=== PATIENT | male | born 1960 | race Caucasian/White ===

== ENCOUNTER → 2016-02-16 | Outpatient (CLI) | payer MEDICARE, MEDICAID ==
[~2016-02-16] MED LIST: /PANT40TA PO; ASPI325T PO; ASPI325T10 PO; ATOR1TAB21 PO; ATOR40TA PO; CARV6.25 PO; CHLO125TA PO; CLOP75TA2 PO; CORE6.25 PO; GLIP5TAB2 PO; GLIPIZIDE XL PO; HYDR50TA PO; INSUHUMDS SC; INSULANT SC; LISI-538 PO; OXYC1TAB23 PO; PANT40TA2 PO; PERC5TAB PO; PLAV75TA PO; ROPI0.5T PO; ZEST20TA8 PO
[2016-02-16 12:31] LABS: CALCIUM LEVEL 9.2 MG/DL (8.5-10.1); CREATININE FOR GFR 1.38 MG/DL (0.70-1.30); GLOMERULAR FILTRATION RATE 56.7 (>56); POTASSIUM SERUM 4.6 MEQ/L (3.5-5.1)
== END ==
LOC: M LAB 11:13
PROVIDERS: ATTEND Nurse Practitioner Family
DX: I10 Essential (primary) hypertension (principal)

== ENCOUNTER → 2016-04-18 | Outpatient (CLI) | payer MEDICARE, MEDICAID ==
[~2016-04-18] MED LIST changes: -PLAV75TA PO; +PLAV75TA38 PO
[2016-04-18 10:26] LABS: CALCIUM LEVEL 9.1 MG/DL (8.5-10.1); CREATININE FOR GFR 1.37 MG/DL (0.70-1.30); GLOMERULAR FILTRATION RATE 57.2 (>56); POTASSIUM SERUM 4.5 MEQ/L (3.5-5.1)
== END ==
LOC: M LAB 09:31
PROVIDERS: ATTEND Physician Assistant Medical
DX: E11.21 Type 2 diabetes mellitus with diabetic nephropathy (principal); E78.2 Mixed hyperlipidemia

== ENCOUNTER → 2016-06-03 | Outpatient (CLI) | payer MEDICARE, MEDICAID ==
[2016-06-03 09:04] LABS: ANION GAP 5 MEQ/L (8-16); BLOOD UREA NITROGEN 16 MG/DL (7-18); CALCIUM LEVEL 8.4 MG/DL (8.5-10.1); CARBON DIOXIDE LEVEL 31 MEQ/L (21-32); CHLORIDE LEVEL 106 MEQ/L (98-107); CREATININE FOR GFR 1.21 MG/DL (0.70-1.30); GLOMERULAR FILTRATION RATE > 60.0 (>56); GLUCOSE, FASTING 130 MG/DL (70-105); POTASSIUM SERUM 4.1 MEQ/L (3.5-5.1); SODIUM LEVEL 142 MEQ/L (136-145)
== END ==
LOC: M LAB 07:56
PROVIDERS: ATTEND Physician Assistant Medical
DX: E11.21 Type 2 diabetes mellitus with diabetic nephropathy (principal)

== ENCOUNTER 2016-09-02 12:22 | Emergency (ER) | payer MEDICARE, MEDICAID ==
[~2016-09-02] VITALS: Ht 180.3 cm; Wt 100.0 kg
[~2016-09-02 12:22] MED LIST changes: -ATOR40TA PO; +ATOR40TA75 PO; +PLAV1TAB2 PO; -PLAV75TA38 PO
[2016-09-02] MEDS ORDERED: XANA1TAB2 PO (12:42)
[2016-09-02 13:38] LABS: BASO % 0.8 % (0.0-1.0); EOS # 0.2 K/mm3 (0.0-0.50); EOS % 2.7 % (0.0-3.0); LARGE UNSTAINED CELL # 0.1 K/mm3 (0.0-0.4); LARGE UNSTAINED CELL % 1.4 % (0.0-4.0); LYMPH # 1.5 K/mm3 (1.5-4.5); LYMPH % 24.3 % (24.0-44.0); MEAN CORPUSCULAR HEMOGLOBIN 31.5 pg (27.0-33.0); MEAN CORPUSCULAR HGB CONC 33.7 g/dl (32.0-36.5); MEAN CORPUSCULAR VOLUME 93.5 fl (80.0-96.0); MONO # 0.4 K/mm3 (0.0-0.8); MONO % 5.8 % (0.0-5.0); NEUTROPHILS # 3.9 K/mm3 (1.8-7.7); PLATELET COUNT, AUTOMATED 119 k/mm3 (150-450); RED CELL DISTRIBUTION WIDTH 13.3 % (11.5-14.5)
[2016-09-02 14:06] LABS: ALBUMIN 3.9 GM/DL (3.2-5.2); ALBUMIN/GLOBULIN RATIO 1.11 (1.00-1.93); ALKALINE PHOSPHATASE 90 U/L (45-117); ALT/SGPT 35 U/L (12-78); ANION GAP 7 MEQ/L (8-16); AST/SGOT 18 U/L (15-37); BILIRUBIN,DIRECT 0.2 MG/DL (0.0-0.2); BILIRUBIN,TOTAL 0.7 MG/DL (0.2-1.0); BLOOD UREA NITROGEN 17 MG/DL (7-18); CALCIUM LEVEL 9.4 MG/DL (8.5-10.1); CARBON DIOXIDE LEVEL 27 MEQ/L (21-32); CHLORIDE LEVEL 103 MEQ/L (98-107); CREATININE FOR GFR 1.15 MG/DL (0.70-1.30); GLOMERULAR FILTRATION RATE > 60.0 (>56); GLUCOSE, FASTING 195 MG/DL (70-105); POTASSIUM SERUM 4.1 MEQ/L (3.5-5.1); SODIUM LEVEL 137 MEQ/L (136-145); TOTAL PROTEIN 7.4 GM/DL (6.4-8.2)
[2016-09-02] MEDS: NS 1,000 ML IV ONE (14:45)
[2016-09-02] MEDS ORDERED: MECL-68 PO (16:43)
[2016-09-02] MEDS: MECLIZINE 25 MG TABLET PO ONE (16:48)
[2016-09-02 16:58] VITALS: BP 166/94
--- NOTE | 2016-09-03 09:00 | ECGEPIP ---
Stationary ECG Study 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
== END 2016-09-02 16:58 | disposition home or self-care (01) ==
LOC: M ED 12:22
DX: R42 Dizziness and giddiness (principal); M54.5 Low back pain; I10 Essential (primary) hypertension; E11.42 Type 2 diabetes mellitus with diabetic polyneuropathy; Z87.891 Personal history of nicotine dependence; Z88.8 Allergy status to other drugs, medicaments and biological substances; Z79.4 Long term (current) use of insulin; Z79.899 Other long term (current) drug therapy

== ENCOUNTER → 2016-10-03 | Outpatient (CLI) | payer MEDICARE, MEDICAID ==
[~2016-10-03] MED LIST changes: +MECL-68 PO; +XANA1TAB2 PO
--- NOTE | 2016-10-03 09:16 | REP ---
ULTRASOUND ABDOMINAL AORTA: Real-time sonographic evaluation of the abdominal aorta performed. Comparison 08/18/2015. There is ectasia of the distal abdominal aorta with a fusiform configuration. Maximum AP diameter is 3 cm. This is borderline aneurysmal. More proximally maximum AP diameter of the abdominal aorta is 1.9 cm and distally just above the bifurcation 1.7 cm. There are mild to moderate scattered partially calcified plaques in the abdominal aorta. Common iliac arteries are normal in caliber, right measuring 1.0 cm AP dimension and left 0.9 cm. IMPRESSION: Ectasia distal abdominal aorta maximum AP diameter 3.0 cm. Signed by Thierry Mars MD 10/03/2016 03:11 P
== END ==
LOC: M RAD 07:33
PROVIDERS: ATTEND Surgery
DX: I71.4 Abdominal aortic aneurysm, without rupture (principal)

== ENCOUNTER → 2016-10-07 | Outpatient (CLI) | payer MEDICARE, MEDICAID ==
[2016-10-07 10:21] LABS: CALCIUM LEVEL 9.5 MG/DL (8.5-10.1); CREATININE FOR GFR 1.33 MG/DL (0.70-1.30); POTASSIUM SERUM 4.5 MEQ/L (3.5-5.1)
== END ==
LOC: M LAB 09:16
PROVIDERS: ATTEND Physician Assistant Medical
DX: I10 Essential (primary) hypertension (principal)

== ENCOUNTER 2017-02-04 11:21 | Emergency (ER) | payer MEDICARE, MEDICAID | END 2017-02-04 14:03 | disposition home or self-care (01) | LOC: M ED 11:21 | DX: M70.42 Prepatellar bursitis, left knee (principal); Z95.5 Presence of coronary angioplasty implant and graft; Z86.73 Personal history of transient ischemic attack (TIA), and cerebral infarction without residual deficits; E11.40 Type 2 diabetes mellitus with diabetic neuropathy, unspecified; I25.2 Old myocardial infarction; E78.00 Pure hypercholesterolemia, unspecified; I10 Essential (primary) hypertension; Z86.718 Personal history of other venous thrombosis and embolism; Z87.01 Personal history of pneumonia (recurrent); H52.209 Unspecified astigmatism, unspecified eye; K80.50 Calculus of bile duct without cholangitis or cholecystitis without obstruction; Z87.440 Personal history of urinary (tract) infections; N17.9 Acute kidney failure, unspecified; K76.0 Fatty (change of) liver, not elsewhere classified; M54.9 Dorsalgia, unspecified; F41.9 Anxiety disorder, unspecified; F32.9 Major depressive disorder, single episode, unspecified; Z79.4 Long term (current) use of insulin; Z79.899 Other long term (current) drug therapy; Z88.8 Allergy status to other drugs, medicaments and biological substances | CPT/HCPCS: 99283 ==

== ENCOUNTER → 2017-03-17 | Outpatient (CLI) | payer MEDICARE, MEDICAID ==
[2017-03-17 09:40] LABS: BASO # 0.1 10^3/uL (0.0-0.2); BASO % 0.9 % (0.0-1.0); EOS # 0.2 10^3/uL (0.0-0.50); EOS % 2.8 % (0.0-3.0); HEMATOCRIT 51.2 % (42.0-52.0); IMMATURE GRANULOCYTE # 0.1 10^3/uL (0-0); IMMATURE GRANULOCYTE % 1.4 % (0-0); LYMPH # 1.5 10^3/uL (1.5-4.5); LYMPH % 18.6 % (24.0-44.0); MEAN CORPUSCULAR HEMOGLOBIN 30.5 pg (27.0-33.0); MEAN CORPUSCULAR HGB CONC 33.2 g/dl (32.0-36.5); MEAN CORPUSCULAR VOLUME 91.9 fl (80.0-96.0); MONO # 0.6 10^3/uL (0.0-0.8); MONO % 6.8 % (0.0-5.0); NEUTROPHILS # 5.7 10^3/uL (1.8-7.7); NEUTROPHILS % 69.5 % (36.0-66.0); PLATELET COUNT, AUTOMATED 150 10^3/uL (150-450); RED BLOOD COUNT 5.57 10^6/uL (4.30-6.10); RED CELL DISTRIBUTION WIDTH 13.2 % (11.5-14.5); WHITE BLOOD COUNT 8.1 10^3/uL (4.0-10.0)
[2017-03-17 10:07] LABS: ANION GAP 6 MEQ/L (8-16); BLOOD UREA NITROGEN 13 MG/DL (7-18); CALCIUM LEVEL 9.3 MG/DL (8.5-10.1); CARBON DIOXIDE LEVEL 29 MEQ/L (21-32); CHLORIDE LEVEL 106 MEQ/L (98-107); CHOLESTEROL LEVEL 141 MG/DL (<200); CHOLESTEROL RISK RATIO 3.615 (<5); CREATININE FOR GFR 1.35 MG/DL (0.70-1.30); GLUCOSE, FASTING 156 MG/DL (70-100); HDL CHOLESTEROL 39 MG/DL (>40); LDL CHOLESTEROL 76.6 MG/DL (<100); NON-HDL-C 102 MG/DL; POTASSIUM SERUM 4.4 MEQ/L (3.5-5.1); SODIUM LEVEL 141 MEQ/L (136-145); TRIGLYCERIDES LEVEL 127 MG/DL (<150)
[2017-03-17 10:14] LABS: MALB URINE SIEMENS 44.3 MG/L; MAU/CREAT RATIO 16.9 MCG/MG (0.0-30.0)
== END ==
LOC: M LAB 08:21
DX: E11.40 Type 2 diabetes mellitus with diabetic neuropathy, unspecified (principal)
CPT/HCPCS: 80061

== ENCOUNTER → 2017-03-17 | Outpatient (CLI) | payer MEDICARE, MEDICAID ==
[2017-03-17 10:01] LABS: ANION GAP 6 MEQ/L (8-16); BLOOD UREA NITROGEN 13 MG/DL (7-18); CALCIUM LEVEL 9.1 MG/DL (8.5-10.1); CARBON DIOXIDE LEVEL 29 MEQ/L (21-32); CHLORIDE LEVEL 105 MEQ/L (98-107); CHOLESTEROL LEVEL 140 MG/DL (<200); CHOLESTEROL RISK RATIO 3.684 (<5); CREATININE FOR GFR 1.32 MG/DL (0.70-1.30); GLOMERULAR FILTRATION RATE 59.5 (>56); GLUCOSE, FASTING 157 MG/DL (70-100); HDL CHOLESTEROL 38 MG/DL (>40); NON-HDL-C 102 MG/DL; POTASSIUM SERUM 4.3 MEQ/L (3.5-5.1); SODIUM LEVEL 140 MEQ/L (136-145); TRIGLYCERIDES LEVEL 125 MG/DL (<150)
[2017-03-17 10:14] LABS: MAU/CREAT RATIO 17.2 MCG/MG (0.0-30.0)
== END ==
LOC: M LAB 08:26
DX: E11.21 Type 2 diabetes mellitus with diabetic nephropathy (principal)

== ENCOUNTER → 2017-10-15 | Outpatient (CLI) | payer MEDICARE, MEDICAID | LOC: M RAD 08:32 | DX: I71.4 Abdominal aortic aneurysm, without rupture (principal) | CPT/HCPCS: 76775 ==

== ENCOUNTER 2018-04-18 14:26 | Inpatient (IN) | payer MEDICARE, MEDICAID ==
[~2018-04-18] VITALS: Ht 180.3 cm; Wt 91.2 kg
[~2018-04-18 14:26] MED LIST changes: +BUPR1TAB53 PO; -INSUHUMDS SC; +INSUHUMDS SUBQ; +LANTINJ4 SUBQ; +LOSA50TA88 PO; -PANT40TA2 PO; +PANT40TA3 PO
[2018-04-18] MEDS ORDERED: LR 1,000 ML IV ONE (15:00)
[2018-04-18 15:07] LABS: BASO % 0.2 % (0.0-1.0); EOS % 0.1 % (0.0-3.0); HEMATOCRIT 48.8 % (42.0-52.0); HEMOGLOBIN 16.6 g/dl (13.5-17.5); LYMPH # 1.2 10^3/uL (1.5-4.5); LYMPH % 9.3 % (24.0-44.0); MEAN CORPUSCULAR HEMOGLOBIN 30.9 pg (27.0-33.0); MEAN CORPUSCULAR VOLUME 90.9 fl (80.0-96.0); MONO # 0.9 10^3/uL (0.0-0.8); MONO % 6.7 % (0.0-5.0); NEUTROPHILS # 10.6 10^3/uL (1.8-7.7); NEUTROPHILS % 83.2 % (36.0-66.0); PLATELET COUNT, AUTOMATED 145 10^3/uL (150-450); RED BLOOD COUNT 5.37 10^6/uL (4.30-6.10); WHITE BLOOD COUNT 12.7 10^3/uL (4.0-10.0)
[2018-04-18] MEDS ORDERED: ONDANSETRON 4MG/2ML VIAL (J2405) IV ONE (15:30)
[2018-04-18] MEDS ORDERED: MORPHINE 4 MG/ML 1ML VIAL/SYRINGE (J2270) IV ONE (15:30)
[2018-04-18 15:35] LABS: ALBUMIN 3.7 GM/DL (3.2-5.2); ALT/SGPT 48 U/L (12-78); BILIRUBIN,DIRECT 0.2 MG/DL (0.0-0.2); BILIRUBIN,TOTAL 0.7 MG/DL (0.2-1.0); BLOOD UREA NITROGEN 11 MG/DL (7-18); CALCIUM LEVEL 8.7 MG/DL (8.5-10.1); CARBON DIOXIDE LEVEL 26 MEQ/L (21-32); CHLORIDE LEVEL 111 MEQ/L (98-107); CPK CREATINE PHOSPHOKINASE 133 U/L (39-308); CREATININE FOR GFR 1.08 MG/DL (0.70-1.30); GLOMERULAR FILTRATION RATE > 60.0 (>56); GLUCOSE, FASTING 174 MG/DL (70-100); LIPASE 78 U/L (73-393); POTASSIUM SERUM 4.4 MEQ/L (3.5-5.1); SODIUM LEVEL 144 MEQ/L (136-145); TOTAL PROTEIN 7.1 GM/DL (6.4-8.2); TROPONIN I < 0.02 NG/ML (< 0.10)
[2018-04-18] MEDS ORDERED: GASTROGRAFIN SOLUTION 30ML (Q9963) As Ordered ONE (15:59)
[2018-04-18] MEDS: GASTROGRAFIN SOLUTION 30ML (Q9963) PO SCH ×2 (16:00→16:30)
[2018-04-18] MEDS ORDERED: ISOVUE-370 76% 100ML VIAL (Q9967) As Ordered ONE (17:01)
--- NOTE | 2018-04-18 17:33 | REP ---
CT of the abdomen pelvis with IV and oral contrast: Comparison is 02/24/2015. The visualized lung anders are unremarkable. There is hepato steatosis. The liver is otherwise unremarkable. There is a small gallbladder calculus. I suspect there is pericholecystic fluid. This may indicate acute cholecystitis and should be correlated with clinical findings. The pancreas is diffusely atrophic. The pancreatic duct is dilated measuring up to 7 mm in diameter. This is similar to the prior study. There is no pancreatic inflammation or pseudocyst. Spleen is normal size, homogeneous and unremarkable. The adrenals are unremarkable. The kidneys are unremarkable. The abdominal aorta. There is ectasia of the distal abdominal aorta measuring up to 2.9 cm in diameter. There is mural thrombus in the distal abdominal aorta. These findings are not significantly changed. There is no bowel distension or obstruction. There is sigmoid colon diverticulosis. There is no CT evidence of diverticulitis. Pelvis: There are surgical clips in the right lower quadrant. The the patient reportedly has an appendectomy. The bladder is unremarkable. There is no ascites or adenopathy. The pelvic bowel loops are unremarkable. Impression: Appendectomy. Gallbladder calculus. Pericholecystic fluid. This may indicate acute cholecystitis and requires clinical correlation. Chronically atrophic pancreas and chronically dilated pancreatic duct. No evidence of pancreatic inflammation or pseudocyst. Mild ectasia of the distal abdominal aorta with mural thrombus. Diverticulosis without diverticulitis. Electronically Signed by Thierry Shepard MD 04/18/2018 05:25 P
[2018-04-18] MEDS ORDERED: PROMETHAZINE INJ 25 MG/ML VIAL (J2550) IV PRN (17:45)
[2018-04-18] MEDS ORDERED: METOCLOPRAMIDE INJ 10MG/2ML VIAL (J2765) IV PRN (17:45)
[2018-04-18] MEDS ORDERED: ONDANSETRON 4MG/2ML VIAL (J2405) IV PRN (17:45)
[2018-04-18] MEDS ORDERED: MORPHINE 4 MG/ML 1ML VIAL/SYRINGE (J2270) IV PRN ×2 (17:45)
[2018-04-18] MEDS ORDERED: GLUCOSE 4 GM CHEW TABLET PO PRN (17:45)
[2018-04-18] MEDS ORDERED: GLUCAGON FOR INJ 1 MG VIAL (J1610) SC PRN (17:45)
[2018-04-18] MEDS ORDERED: KETOROLAC 30 MG/ML VIAL (J1885) IV PRN (17:45)
[2018-04-18] MEDS ORDERED: NORCO, ANEXSIA 5/325MG TABLET (HYDROcodone/ACETAMINOPHEN) PO PRN ×2 (17:45)
[2018-04-18] MEDS ORDERED: DEXTROSE 50% 50 ML SYRINGE IV PRN (17:45)
[2018-04-18] MEDS: HumaLOG INSULIN (NovoLOG) PER UNIT SC SCH (18:00)
[2018-04-18] MEDS ORDERED: GLIP5TAB8 PO (18:21)
[2018-04-18] MEDS: PIPERACILLIN/TAZOBACTAM SOD 3.375 GM in D5W MINI-BAG PLUS 50 ML IV SCH (18:30)
[2018-04-18] MEDS ORDERED: HumaLOG INSULIN (NovoLOG) PER UNIT SC ONE (21:00)
[2018-04-18] MEDS ORDERED: glipiZIDE (GLUCOTROL) 5 MG TAB PO SCH (21:00)
[2018-04-18] MEDS: LR 1,000 ML IV SCH (21:37)
[2018-04-18] MEDS: CARVedilol 6.25 MG TAB PO SCH (21:38)
[2018-04-18] MEDS: ATORVASTATIN 20 MG TAB PO SCH (21:38)
[2018-04-18] MEDS: rOPINIRole 0.25 MG TAB(REQUIP) PO SCH (22:55)
[2018-04-18] MEDS: buPROPion **SR TABLET** (ZYBAN) 150MG PO SCH (22:55)
[2018-04-19] MEDS: HumaLOG INSULIN (NovoLOG) PER UNIT SC SCH ×4 (00:24→18:18)
[2018-04-19] MEDS: PIPERACILLIN/TAZOBACTAM SOD 3.375 GM in D5W MINI-BAG PLUS 50 ML IV SCH ×5 (00:29→23:06)
[2018-04-19 01:30] VITALS: BP 162/77
[2018-04-19] MEDS: PANTOPRAZOLE 40MG INJ (PROTONIX) (C9113) IV SCH ×2 (01:35→08:38)
[2018-04-19] MEDS: LR 1,000 ML IV SCH ×2 (02:00→11:11)
[2018-04-19 05:00] VITALS: BP 152/74
[2018-04-19 06:48] LABS: HEMATOCRIT 48.4 % (42.0-52.0); HEMOGLOBIN 15.9 g/dl (13.5-17.5); MEAN CORPUSCULAR HEMOGLOBIN 29.9 pg (27.0-33.0); MEAN CORPUSCULAR HGB CONC 32.9 g/dl (32.0-36.5); PLATELET COUNT, AUTOMATED 156 10^3/uL (150-450); RED BLOOD COUNT 5.32 10^6/uL (4.30-6.10); WHITE BLOOD COUNT 9.7 10^3/uL (4.0-10.0)
[2018-04-19 07:10] LABS: ALBUMIN 3.2 GM/DL (3.2-5.2); ALT/SGPT 120 U/L (12-78); BILIRUBIN,TOTAL 1.3 MG/DL (0.2-1.0); BLOOD UREA NITROGEN 10 MG/DL (7-18); CALCIUM LEVEL 8.1 MG/DL (8.5-10.1); CARBON DIOXIDE LEVEL 25 MEQ/L (21-32); CHLORIDE LEVEL 108 MEQ/L (98-107); CREATININE FOR GFR 0.98 MG/DL (0.70-1.30); GLOMERULAR FILTRATION RATE > 60.0 (>56); GLUCOSE, FASTING 156 MG/DL (70-100); SODIUM LEVEL 140 MEQ/L (136-145); TOTAL PROTEIN 6.8 GM/DL (6.4-8.2)
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
[2018-04-19] MEDS: buPROPion **SR TABLET** (ZYBAN) 150MG PO SCH ×2 (08:38→20:49)
[2018-04-19] MEDS: CARVedilol 6.25 MG TAB PO SCH ×2 (08:38→20:50)
[2018-04-19 10:00] VITALS: BP 108/55
--- NOTE | 2018-04-19 12:08 | IPN ---
DATE: 04/19/2018 The patient overall states that his pain is better than it was last night. His white count has come down this morning. Unfortunately his liver function test have bumped up with his bilirubin bumping up, and it is suggestive, with a history of pancreatitis, that he probably has a common bile duct stone. He states that his pain is better, so I wonder if he passed a stone, but at this point, it makes the most sense to proceed with an magnetic resonance cholangiopancreatography (MRCP). On his physical exam, his abdomen is less tender than it was yesterday, without significant guarding, rebound or peritoneal signs, although he has had some pain medication this morning but he states in general things are better today than there were yesterday. IMPRESSION AND PLAN: 1. The patient has an episode of cholecystitis, although it is hard to know if this was just edema in the gallbladder secondary to common bile duct obstruction and not specifically cholecystitis. But, in any case, prophylactic treatment for cholecystitis is most reasonable. In addition, his liver function tests (LFTs) had bumped up, and this suggests a possible common bile duct stone. Will see if it has passed. If it appears to have passed on the MRCP, then will continue with his clear liquid diet. Unfortunately, he states that he is not able to stay at the hospital because of other issues ongoing. I have instructed him that things can get worse, and he may need to stay for a few days. But, at this point, he is suggesting that he may need to sign out against medical advice (AMA). Thus, from a compromised standpoint, if he tolerates a clear liquid diet and seems to be doing fine with this, it is reasonable to have him discharged to home and close interval followup at the office with plans for a laparoscopic cholecystectomy. At this point, however, his other issue is his anticoagulation that he is currently on. He will eventually be suitable for procedure, but with his anticoagulation, I anticipate if he even has a common bile duct stone seen on the study, that endoscopic retrograde cholangiopancreatography (ERCP) may not be offered for him given that he is relatively asymptomatic and want to wait another 24 hours prior to assessing whether this is reasonable. From the standpoint of surgical intervention, his risk of perioperative bleeding is much higher given his recent use of Plavix. Thus, we will see how he does with the MRCP and reassess thereafter.
[2018-04-19 14:12] VITALS: BP 116/61
--- NOTE | 2018-04-19 15:54 | IPNPDOC ---
Subjective Date Seen The patient was seen on 04/19/18. Subjective Chief Complaint/HPI Patient seen and examined at the bedside. Reports overall improvement of clinical condition and abdominal pain. MRCP ordered this morning for elevated LFTs. Objective Physical Examination General Exam: Positive: Alert, Cooperative, No Acute Distress ENT Exam: Positive: Atraumatic, Mucous membr. moist/pink Neck Exam: Negative: JVD Chest Exam: Positive: Clear to auscultation, Normal air movement Heart Exam: Positive: Rate Normal, Normal S1, Normal S2 Abdomen Exam: Positive: Soft, Tenderness (Mild tenderness to deep palpation in the RUQ. No rebound tenderness, guarding, or rigidity noted.) Extremity Exam: Negative: Tenderness, Swelling Psych Exam: Positive: Oriented x 3 Assessment /Plan Plan/VTE VTE Prophylaxis Ordered?: Yes Plan Possible Acute Cholecystitis CT Abd/Pel from admission noted Cont Zosyn Pain meds as ordered NPO, IVF Hydration Surgery on board for possible intervention Elevated LFTs possibly 2/2 Underlying CBD Stone MRCP ordered Patient did have a low grade fever last night, but WBC has normalized, and he otherwise notes an overall improvement of pain, clinical condition Will follow up with studies Hx of CAD s/p Stenting 5 years ago Plavix on hold for possible surgical intervention Patient denies any acute c/o chest pain, palpitations, SOB Cont Statin, Coreg DM Cont ISS as ordered HTN, stable Cont Coreg, Losartan on hold GERD Cont Protonix Depression/Anxiety Cont Bupropion Dyslipidemia Cont Statin Restless Leg Syndrome Cont Ropinrole DVT Prophylaxis SCDs/TEDs VS, I&O, 24H, Fishbone Vital Signs/I&O Vital Signs Date Time Temp Pulse Resp B/P (MAP) Pulse Ox O2 Delivery O2 Flow Rate FiO2 04/19/18 14:12 98.1 61 18 116/61 (79) 97 04/19/18 10:00 91.0 91 04/19/18 01:16 Room Air I&O- Last 24 Hours up to 6 AM 04/19/18 05:59 Intake Total 1050 ml Balance 1050 ml Laboratory Data 24H LABS Laboratory Tests 2 04/18/18 19:27: Bedside Glucose (Misc Panel) 139H 04/19/18 00:16: Bedside Glucose (Misc Panel) 138H 04/19/18 05:39: Bedside Glucose (Misc Panel) 156H 04/19/18 06:15: Nucleated Red Blood Cells % (auto) 0.0, Anion Gap 7L, Glomerular Filtration Rate > 60.0, Blood Urea Nitrogen 10, Creatinine 0.98, Sodium Level 140, Potassium Level 4.0, Chloride Level 108H, Carbon Dioxide Level 25, Calcium Level 8.1L, Aspartate Amino Transf (AST/SGOT) 114H, Alanine Aminotransferase (ALT/SGPT) 120H, Alkaline Phosphatase 138H, Total Bilirubin 1.3#H, Total Protein 6.8, Albumin 3.2, Albumin/Globulin Ratio 0.89L 04/19/18 12:43: Bedside Glucose (Misc Panel) 159H CBC/BMP Laboratory Tests 04/19/18 06:15 Red Blood Count 5.32, Mean Corpuscular Volume 91.0, Mean Corpuscular Hemoglobin 29.9, Mean Corpuscular Hemoglobin Concent 32.9, Red Cell Distribution Width 14.2, Calcium Level 8.1 L, Aspartate Amino Transf (AST/SGOT) 114 H, Alanine Aminotransferase (ALT/SGPT) 120 H, Alkaline Phosphatase 138 H, Total Bilirubin 1.3 #H, Total Protein 6.8, Albumin 3.2 TORIN BEACH MD Apr 19, 2018 15:54
[2018-04-19 16:00] VITALS: BP 134/68
[2018-04-19 20:00] VITALS: BP 127/69
[2018-04-19] MEDS: rOPINIRole 0.25 MG TAB(REQUIP) PO SCH (20:50)
--- NOTE | 2018-04-19 20:54 | ECGEPIP ---
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
[2018-04-19] MEDS: ATORVASTATIN 20 MG TAB PO SCH (21:07)
[2018-04-20] VITALS: BP 110/58
[2018-04-20] MEDS: LR 1,000 ML IV SCH (00:24)
[2018-04-20] MEDS: HumaLOG INSULIN (NovoLOG) PER UNIT SC SCH ×3 (00:24→12:00)
[2018-04-20 04:00] VITALS: BP 115/64
[2018-04-20] MEDS: PIPERACILLIN/TAZOBACTAM SOD 3.375 GM in D5W MINI-BAG PLUS 50 ML IV SCH ×2 (06:12→12:30)
[2018-04-20 08:00] VITALS: BP 145/81
[2018-04-20 08:38] LABS: HEMATOCRIT 40.4 % (42.0-52.0); MEAN CORPUSCULAR HEMOGLOBIN 30.4 pg (27.0-33.0); MEAN CORPUSCULAR HGB CONC 33.7 g/dl (32.0-36.5); MEAN CORPUSCULAR VOLUME 90.2 fl (80.0-96.0); PLATELET COUNT, AUTOMATED 113 10^3/uL (150-450); RED BLOOD COUNT 4.48 10^6/uL (4.30-6.10); WHITE BLOOD COUNT 5.2 10^3/uL (4.0-10.0)
[2018-04-20 08:40] LABS: HEMOGLOBIN 13.6 g/dl (13.5-17.5)
[2018-04-20 09:01] LABS: ALBUMIN 2.7 GM/DL (3.2-5.2); ALT/SGPT 111 U/L (12-78); BILIRUBIN,TOTAL 0.9 MG/DL (0.2-1.0); BLOOD UREA NITROGEN 8 MG/DL (7-18); CALCIUM LEVEL 8.1 MG/DL (8.5-10.1); CARBON DIOXIDE LEVEL 27 MEQ/L (21-32); CHLORIDE LEVEL 111 MEQ/L (98-107); CREATININE FOR GFR 1.05 MG/DL (0.70-1.30); GLOMERULAR FILTRATION RATE > 60.0 (>56); GLUCOSE, FASTING 97 MG/DL (70-100); POTASSIUM SERUM 3.9 MEQ/L (3.5-5.1); SODIUM LEVEL 143 MEQ/L (136-145); TOTAL PROTEIN 5.8 GM/DL (6.4-8.2)
--- NOTE | 2018-04-20 09:04 | REP ---
MRI ABDOMEN WITHOUT CONTRAST (MRCP): 04/19/2018 CLINICAL HISTORY: Cholelithiasis, sludge, possible acute cholecystitis. TECHNIQUE: Coronal T2 and standard MRCP acquisitions with gradient echo and fat suppressed heavily T2-weighted techniques and reconstructions. COMPARISON: CT 04/18/2017, 10/09/2014, ultrasound 10/14/2014 FINDINGS: Liver shows no focal hepatic mass nor is there any intrahepatic biliary dilatation. There is no splenomegaly or focal lesion and no generalized ascites. There is some pericholecystic edema and fluid. Layered debris in the gallbladder is noted near the fundus and dependent gallbladder. The common duct is up to 4.2 mm and without definite filling defect within the david hepatis. In the pancreatic head region, a subtle defect is seen less than 2 mm which could be a stone or artifact. In addition, the pancreatic duct is dilated and is up to [address] it was 6-[address] in 2014 in the same region of the pancreatic body and head. Pancreatic atrophy is again seen. There is no peripancreatic fluid collection. Adrenal glands are grossly intact. I see no definite adenopathy. Kidneys show no hydronephrosis. IMPRESSION: 1. Biliary sludge and some stones layering and with some pericholecystic fluid/edema evident. Cannot exclude acute cholecystitis. 2. There is no common duct dilatation, but a 1.6 mm filling defect in the common duct within the pancreatic head distally noted that could be stone or other intraductal filling defect versus artifact. This is not obstructing. 3. Dilated pancreatic duct with chronic atrophy and that duct up to 7 mm as on the CT 3 years ago. The distal filling defect that may be present. Calcification in the pancreatic head in this region noted but it is unchanged from the 2015 study. ERCP may helpful. Electronically Signed by Errol Zimmerman MD 04/20/2018 07:38 P
[2018-04-20] MEDS: PANTOPRAZOLE 40MG INJ (PROTONIX) (C9113) IV SCH (09:25)
[2018-04-20] MEDS: buPROPion **SR TABLET** (ZYBAN) 150MG PO SCH (09:25)
[2018-04-20 09:27] VITALS: BP 145/81
[2018-04-20] MEDS: CARVedilol 6.25 MG TAB PO SCH (09:27)
[2018-04-20] MEDS ORDERED: AUGM500T34 PO (10:24)
--- NOTE | 2018-04-20 16:18 | IPNPDOC ---
Subjective Date Seen The patient was seen on 04/20/18. Subjective Chief Complaint/HPI Patient seen and examined at bedside this morning. States that his abdominal pain has resolved, and notes that he has been tolerating a liquid diet without any acute complaints of nausea, vomiting, abdominal pain, or diarrhea. He is awaiting to be seen by the surgeon to see the next step in the plan of his care. Otherwise, no acute overnight events noted. Objective Physical Examination General Exam: Positive: Alert, Cooperative, No Acute Distress ENT Exam: Positive: Atraumatic, Mucous membr. moist/pink Neck Exam: Negative: JVD Chest Exam: Positive: Clear to auscultation, Normal air movement Heart Exam: Positive: Rate Normal, Normal S1, Normal S2 Abdomen Exam: Positive: Soft; Negative: Tenderness Extremity Exam: Negative: Tenderness, Swelling Psych Exam: Positive: Oriented x 3 Assessment /Plan Plan/VTE VTE Prophylaxis Ordered?: Yes Plan Possible Acute Cholecystitis CT Abd/Pel from admission noted Cont Zosyn as ordered Pain meds as ordered Patient's diet has been advanced to clear liquids by Surgery Surgery on board for possible intervention Elevated LFTs possibly 2/2 Underlying CBD Stone MRCP ordered--notable for no common duct dilatation, but a 1.6 mm filling defect in the common duct within the pancreatic head distally noted to be Stone versus intraductal filling defect versus artifact The patient's LFTs are trending downwards this morning Will follow up with Surgical recommendations Hx of CAD s/p Stenting 5 years ago Plavix on hold for possible surgical intervention Patient denies any acute c/o chest pain, palpitations, SOB Cont Statin, Coreg DM Cont ISS as ordered HTN, stable Cont Coreg, Losartan on hold GERD Cont Protonix Depression/Anxiety Cont Bupropion Dyslipidemia Cont Statin Restless Leg Syndrome Cont Ropinrole DVT Prophylaxis SCDs/TEDs VS, I&O, 24H, Fishbone Vital Signs/I&O Vital Signs Date Time Temp Pulse Resp B/P (MAP) Pulse Ox O2 Delivery O2 Flow Rate FiO2 04/20/18 09:27 63 145/81 04/20/18 08:00 97.8 19 96 04/19/18 10:00 04/19/18 01:16 Room Air I&O- Last 24 Hours up to 6 AM 04/20/18 06:00 Intake Total 1560 ml Output Total 500 ml Balance 1060 ml Laboratory Data 24H LABS Laboratory Tests 2 04/19/18 17:35: Bedside Glucose (Misc Panel) 138H 04/19/18 18:20: Urine Color CAT, Urine Appearance CLEAR, Urine pH 5.0, Urine Specific [place] 1.043, Urine Protein 1+H, Urine Glucose (UA) 2+H, Urine Ketones TRACEH, Urine Blood NEGATIVE, Urine Nitrite NEGATIVE, Urine Bilirubin NEGATIVE, Urine Urobilinogen 4.0H, Urine Leukocyte Esterase NEGATIVE, Urine WBC (Auto) 10H, Urine RBC (Auto) 5H, Urine Hyaline Casts (Auto) 0, Urine Bacteria (Auto) NEGATIVE, Urine Squamous Epithelial Cells 2, Urine Mucus (Auto) SMALL, Urine Sperm (Auto) 04/20/18 00:13: Bedside Glucose (Misc Panel) 110H 04/20/18 06:06: Bedside Glucose (Misc Panel) 110H 04/20/18 08:08: Nucleated Red Blood Cells % (auto) 0.0, Anion Gap 5L, Glomerular Filtration Rate > 60.0, Blood Urea Nitrogen 8, Creatinine 1.05, Sodium Level 143, Potassium Level 3.9, Chloride Level 111H, Carbon Dioxide Level 27, Calcium Level 8.1L, Aspartate Amino Transf (AST/SGOT) 80H, Alanine Aminotransferase (ALT/SGPT) 111H, Alkaline Phosphatase 126H, Total Bilirubin 0.9, Total Protein 5.8L, Albumin 2.7L, Albumin/Globulin Ratio 0.87L 04/20/18 12:14: Bedside Glucose (Misc Panel) 119H CBC/BMP Laboratory Tests 04/20/18 08:08 Red Blood Count 4.48, Mean Corpuscular Volume 90.2, Mean Corpuscular Hemoglobin 30.4, Mean Corpuscular Hemoglobin Concent 33.7, Red Cell Distribution Width 14.3, Calcium Level 8.1 L, Aspartate Amino Transf (AST/SGOT) 80 H, Alanine Aminotransferase (ALT/SGPT) 111 H, Alkaline Phosphatase 126 H, Total Bilirubin 0.9, Total Protein 5.8 L, Albumin 2.7 L TORIN BEACH MD Apr 20, 2018 16:18
== END 2018-04-20 13:30 | disposition home or self-care (01) | DRG 446 ==
LOC: M ED 14:26 → M ED INP 17:37 → M MS4PR 04-19 01:26 → M PED 04-19 16:00
PROVIDERS: ADMIT Surgery; ATTEND Surgery
DX: K80.00 Calculus of gallbladder with acute cholecystitis without obstruction (principal); I25.10 Atherosclerotic heart disease of native coronary artery without angina pectoris; I10 Essential (primary) hypertension; K21.9 Gastro-esophageal reflux disease without esophagitis; F32.9 Major depressive disorder, single episode, unspecified; E11.51 Type 2 diabetes mellitus with diabetic peripheral angiopathy without gangrene; G25.81 Restless legs syndrome; Z79.899 Other long term (current) drug therapy; Z88.8 Allergy status to other drugs, medicaments and biological substances; E78.5 Hyperlipidemia, unspecified; F41.9 Anxiety disorder, unspecified

== ENCOUNTER → 2018-06-29 | Outpatient (CLI) | payer MEDICARE, MEDICAID ==
[~2018-06-29] MED LIST changes: -/PANT40TA PO; +ASPI-1 PO; -ASPI325T PO; +AUGM500T34 PO; +GLIP5TAB8 PO; +HYDR-4267 PO; -HYDR50TA PO; +PROT1TAB2 PO
[2018-06-29 10:07] LABS: BASO # 0.1 10^3/uL (0.0-0.2); BASO % 0.7 % (0.0-1.0); EOS # 0.3 10^3/uL (0.0-0.50); HEMATOCRIT 49.4 % (42.0-52.0); HEMOGLOBIN 16.6 g/dl (13.5-17.5); LYMPH # 1.8 10^3/uL (1.5-4.5); LYMPH % 22.2 % (24.0-44.0); MEAN CORPUSCULAR HEMOGLOBIN 31.6 pg (27.0-33.0); MEAN CORPUSCULAR HGB CONC 33.6 g/dl (32.0-36.5); MEAN CORPUSCULAR VOLUME 93.9 fl (80.0-96.0); MONO # 0.5 10^3/uL (0.0-0.8); MONO % 5.8 % (0.0-5.0); NEUTROPHILS # 5.6 10^3/uL (1.8-7.7); NEUTROPHILS % 67.7 % (36.0-66.0); PLATELET COUNT, AUTOMATED 146 10^3/uL (150-450); RED BLOOD COUNT 5.26 10^6/uL (4.30-6.10); WHITE BLOOD COUNT 8.3 10^3/uL (4.0-10.0)
[2018-06-29 11:07] LABS: BLOOD UREA NITROGEN 14 MG/DL (7-18); CALCIUM LEVEL 9.5 MG/DL (8.5-10.1); CARBON DIOXIDE LEVEL 29 MEQ/L (21-32); CHLORIDE LEVEL 101 MEQ/L (98-107); CREATININE FOR GFR 1.27 MG/DL (0.70-1.30); FREE T4 1.01 NG/DL (0.76-1.46); GLOMERULAR FILTRATION RATE > 60.0 (>56); GLUCOSE, FASTING 434 MG/DL (70-100); POTASSIUM SERUM 4.9 MEQ/L (3.5-5.1); SODIUM LEVEL 136 MEQ/L (136-145)
[2018-06-29 11:36] LABS: HEMOGLOBIN A1c 10.4 %
== END ==
LOC: M LAB 09:25
PROVIDERS: ATTEND Physician Assistant Medical
DX: R63.4 Abnormal weight loss (principal); E11.40 Type 2 diabetes mellitus with diabetic neuropathy, unspecified

== ENCOUNTER → 2018-06-30 | Day surgery (SDC) | payer MEDICARE, MEDICAID ==
[~2018-06-30] VITALS: Ht 177.8 cm; Wt 83.0 kg
[~2018-06-30] MED LIST changes: +KETOROLAC 60 MG/2 ML VIAL (J1885) As Ordered ONE; +LIDOCAINE 2% INJ 100 MG/5 ML SDV (FOR ANES.) As Ordered ONE; +LR 1,000 ML IV ONE; +MIDAZOLAM INJ 2 MG/2 ML VIAL (J2250) As Ordered ONE; +ONDANSETRON 4MG/2ML VIAL (J2405) As Ordered ONE; +PROPOFOL 200 MG/20 ML VIAL As Ordered ONE; +ROCURONIUM BROMIDE 50 MG/5 ML VIAL As Ordered ONE; +ceFAZolin SOD 1 GM in D5W MINI-BAG PLUS 50 ML IV ONE; +dexameTHASONE 4 MG/ML 1ML VIAL (J1100) As Ordered ONE; +fentaNYL 250 MCG/5 ML INJECTION (J3010) As Ordered ONE
[2018-06-30 08:30] VITALS: BP 156/74
== END | disposition home or self-care (01) ==
LOC: M SDC 07:36
PROVIDERS: ATTEND Surgery
DX: K85.10 Biliary acute pancreatitis without necrosis or infection (principal); Z53.09 Procedure and treatment not carried out because of other contraindication; Z98.61 Coronary angioplasty status; Z79.01 Long term (current) use of anticoagulants

== ENCOUNTER → 2018-11-12 | Outpatient (CLI) | payer MEDICARE ==
[~2018-11-12] MED LIST changes: -KETOROLAC 60 MG/2 ML VIAL (J1885) As Ordered ONE; -LIDOCAINE 2% INJ 100 MG/5 ML SDV (FOR ANES.) As Ordered ONE; -LR 1,000 ML IV ONE; -MIDAZOLAM INJ 2 MG/2 ML VIAL (J2250) As Ordered ONE; -ONDANSETRON 4MG/2ML VIAL (J2405) As Ordered ONE; -PROPOFOL 200 MG/20 ML VIAL As Ordered ONE; -ROCURONIUM BROMIDE 50 MG/5 ML VIAL As Ordered ONE; -ceFAZolin SOD 1 GM in D5W MINI-BAG PLUS 50 ML IV ONE; -dexameTHASONE 4 MG/ML 1ML VIAL (J1100) As Ordered ONE; -fentaNYL 250 MCG/5 ML INJECTION (J3010) As Ordered ONE
[2018-11-12 11:11] LABS: HEMOGLOBIN A1c 10.8 %
[2018-11-12 11:27] LABS: CALCIUM LEVEL 9.1 MG/DL (8.5-10.1); CHOLESTEROL RISK RATIO 4.909 (<5); CREATININE FOR GFR 1.41 MG/DL (0.70-1.30); GLOMERULAR FILTRATION RATE 54.8 (>56); POTASSIUM SERUM 5.1 MEQ/L (3.5-5.1)
[2018-11-12 11:32] LABS: MAU/CREAT RATIO 43.9 MCG/MG (0.0-30.0)
== END ==
LOC: M LAB 09:46
PROVIDERS: ATTEND Physician Assistant Medical
DX: E11.40 Type 2 diabetes mellitus with diabetic neuropathy, unspecified (principal); I25.10 Atherosclerotic heart disease of native coronary artery without angina pectoris; E78.5 Hyperlipidemia, unspecified

== ENCOUNTER → 2019-03-03 | Outpatient (CLI) | payer MEDICARE ==
[~2019-03-03] MED LIST changes: -MECL-68 PO; +MECL1TAB31 PO
[2019-03-03 13:10] LABS: HEMOGLOBIN A1c 12.6 %
[2019-03-03 13:12] LABS: BLOOD UREA NITROGEN 12 MG/DL (7-18); CALCIUM LEVEL 8.9 MG/DL (8.5-10.1); CARBON DIOXIDE LEVEL 30 MEQ/L (21-32); CHLORIDE LEVEL 102 MEQ/L (98-107); CREATININE FOR GFR 1.26 MG/DL (0.70-1.30); GLOMERULAR FILTRATION RATE > 60.0 (>56); GLUCOSE, FASTING 411 MG/DL (70-100); POTASSIUM SERUM 4.6 MEQ/L (3.5-5.1); SODIUM LEVEL 137 MEQ/L (136-145)
== END ==
LOC: M LAB 11:28
PROVIDERS: ATTEND Physician Assistant Medical
DX: E11.40 Type 2 diabetes mellitus with diabetic neuropathy, unspecified (principal)

== ENCOUNTER → 2019-09-21 | Outpatient (CLI) | payer MEDICARE, MEDICAID ==
[~2019-09-21] MED LIST changes: +PANT40TA29 PO; -PANT40TA3 PO; -ROPI0.5T PO; +ROPI0.5T3 PO
[2019-11-04 14:24] LABS: ALBUMIN 3.9 GM/DL (3.2-5.2); BILIRUBIN,TOTAL 0.8 MG/DL (0.2-1.0); CALCIUM LEVEL 9.6 MG/DL (8.8-10.2); CHOLESTEROL RISK RATIO 4.088 (<5); CREATININE FOR GFR 1.34 MG/DL (0.70-1.30); GLOMERULAR FILTRATION RATE 57.9 (>49); POTASSIUM SERUM 4.6 MEQ/L (3.5-5.1); TOTAL PROTEIN 7.6 GM/DL (6.4-8.2)
[2019-11-04 14:25] LABS: HEMOGLOBIN A1c 10.2 %
== END ==
LOC: M LAB 08:48
PROVIDERS: ATTEND Physician Assistant Medical
DX: E11.40 Type 2 diabetes mellitus with diabetic neuropathy, unspecified (principal)

== ENCOUNTER → 2019-12-09 | Outpatient (REF) | payer MEDICARE, MEDICAID | LOC: M LAB REF 13:36 | PROVIDERS: ATTEND Physician Assistant Medical | DX: J02.9 Acute pharyngitis, unspecified (principal) ==

== ENCOUNTER → 2020-03-13 | Outpatient (REF) | payer MEDICARE, MEDICAID ==
[2020-03-13 18:40] LABS: CREATININE, URINE 66.1 MG/DL; MALB URINE SIEMENS 18.2 MG/L; MAU/CREAT RATIO 27.5 MCG/MG (0.0-30.0)
== END ==
LOC: M LAB REF 16:41
PROVIDERS: ATTEND Physician Assistant Medical
DX: E11.40 Type 2 diabetes mellitus with diabetic neuropathy, unspecified (principal)

== ENCOUNTER → 2021-05-10 | Outpatient (CLI) | payer MEDICARE, MEDICAID ==
[~2021-05-10] MED LIST changes: -LISI-538 PO; +LISI20TA33 PO; +LOSA50TA28 PO; -LOSA50TA88 PO
== END ==
LOC: M RAD 07:46
PROVIDERS: ATTEND Nurse Practitioner Family
DX: Z13.6 Encounter for screening for cardiovascular disorders (principal); Z87.891 Personal history of nicotine dependence; I71.4 Abdominal aortic aneurysm, without rupture

== ENCOUNTER → 2022-05-01 | Outpatient (CLI) | payer MEDICARE, MEDICAID ==
[~2022-05-01] MED LIST changes: +CLOP75TA99 PO; -PLAV1TAB2 PO
== END ==
LOC: M RAD 08:12
PROVIDERS: ATTEND Surgery Vascular Surgery
DX: I70.213 Atherosclerosis of native arteries of extremities with intermittent claudication, bilateral legs (principal); I71.40 Abdominal aortic aneurysm, without rupture, unspecified

== ENCOUNTER 2022-06-04 09:23 | Observation (INO) | payer MEDICARE, MEDICAID ==
[~2022-06-04] VITALS: Ht 177.8 cm; Wt 70.7 kg
[~2022-06-04 09:23] MED LIST changes: -CLOPIDOGREL 75 MG TAB As Ordered ONE; -DEXTROSE 50% 50ML VIAL As Ordered ONE; -DICL1GEL3 TOP; -HEPARIN 1,000UNITS/ML 10ML VIAL (FOR RADIOLOGY & DIALYSIS ONLY) As Ordered ONE; -HYDR-3490 PO; -INSULIN LISPRO (NovoLOG) PER UNIT As Ordered ONE; -INSULIN LISPRO (NovoLOG) PER UNIT SC STA; -ISOVUE-300 61% 100ML VIAL As Ordered ONE; -JARD1TAB3 PO; -LIDOCAINE 1% MDV 20ML VIAL As Ordered ONE; -LOSA100T45 PO; -MIDAZOLAM INJ 2MG/2ML VIAL As Ordered ONE; -MORPHINE 10 MG/ML 1ML VIAL As Ordered ONE; -NS 1,000 ML IV SCH; -PAPAVERINE HCL 60MG 2ML VIAL (30MG/ML) As Ordered ONE; -ROSU10TA6 PO; -SERT50TA29 PO; -TADA5TAB PO; -ceFAZolin 2 GM/D5W 50 ML IV BAG As Ordered ONE; -ceFAZolin SOD 2 GM in IV 1 EA IV ONE; -diphenhydrAMINE 50MG/ML VIAL As Ordered ONE; -fentaNYL 100 MCG/2 ML INJECTION As Ordered ONE
[2022-06-04] MEDS ORDERED: NS 1,000 ML IV ONE (09:40)
[2022-06-04] MEDS ORDERED: HumuLIN R (REGULAR) INSULIN (NovoLIN R) **100U/ML** PER UNIT IV ONE (09:40)
[2022-06-04] MEDS ORDERED: MORPHINE 4 MG/ML 1ML VIAL IV PRN (10:05)
[2022-06-04 10:46] LABS: ALBUMIN 3.6 G/DL (3.2-5.2); BILIRUBIN,DIRECT 0.3 MG/DL (<0.4); BILIRUBIN,TOTAL 0.7 MG/DL (0.3-1.2); TOTAL PROTEIN 6.8 G/DL (5.7-8.2)
[2022-06-04 11:05] LABS: RSV AMPLIFICATION NEGATIVE (NEGATIVE)
[2022-06-04] MEDS ORDERED: SERT50TA29 PO (11:14)
[2022-06-04] MEDS ORDERED: HYDR-3490 PO (11:14)
[2022-06-04] MEDS ORDERED: CLOP75TA2 PO (11:14)
[2022-06-04] MEDS ORDERED: LOSA100T46 PO (11:14)
[2022-06-04] MEDS ORDERED: JARD1TAB3 PO (11:14)
[2022-06-04] MEDS ORDERED: DICL1GEL3 TOP (11:14)
[2022-06-04] MEDS ORDERED: ROSU10TA6 PO (11:14)
[2022-06-04] MEDS ORDERED: OXYC1TAB23 PO (11:14)
[2022-06-04] MEDS ORDERED: TADA5TAB PO (11:14)
[2022-06-04] MEDS ORDERED: HOME MED LIST COMPLETE! XX SCH (11:15)
[2022-06-04 11:17] LABS: HEMOGLOBIN A1c > 14.0 % (4.0-6.0)
[2022-06-04 11:30] LABS: ACETONE/KETONE 0.2 MMOL/L (0.02-0.27)
[2022-06-04 11:49] LABS: ABG BASE EXCESS 1.3 (-2.0-2.0); ABG O2 SATURATION 98.3 % (95.0-99.0); ABG PARTIAL PRESSURE CO2 41.4 mmHg (35.0-45.0); ABG PARTIAL PRESSURE O2 124.9 mmHg (75.0-100.0); ABG STANDARD HCO3 25.6 MEQ/L (22.0-26.0); ABG TOTAL CO2 27.2 MEQ/L (23.0-31.0); ABG pH (ARTERIAL) 7.415 UNITS (7.350-7.450)
[2022-06-04] MEDS: NS 1,000 ML IV SCH ×2 (11:51→20:17)
[2022-06-04] MEDS ORDERED: INSULIN LISPRO (NovoLOG) PER UNIT SC SCH (13:00)
[2022-06-04 14:25] VITALS: BP 125/60
[2022-06-04] MEDS: ASPIRIN 81MG ENTERIC TABLET PO SCH (15:13)
[2022-06-04] MEDS: MORPHINE 4 MG/ML 1ML VIAL IV PRN ×2 (15:14→20:23)
[2022-06-04] MEDS ORDERED: DEXTROSE 50% 50ML SYRINGE IV PRN (15:45)
[2022-06-04] MEDS ORDERED: GLUCAGON INJ 1MG VIAL SC PRN (15:45)
[2022-06-04] MEDS ORDERED: GLUCOSE 4GM CHEW TABLET PO PRN (15:45)
[2022-06-04 16:30] VITALS: BP 108/62
[2022-06-04 17:12] LABS: BLOOD UREA NITROGEN 23 MG/DL (9-23); CALCIUM LEVEL 8.9 MG/DL (8.3-10.6); CARBON DIOXIDE LEVEL 26 MMOL/L (20-31); CHLORIDE LEVEL 102 MMOL/L (98-107); CREATININE FOR GFR 1.13 MG/DL (0.70-1.30); GLOMERULAR FILTRATION RATE > 60.0 (>49); GLUCOSE, FASTING 202 MG/DL (74-106); POTASSIUM SERUM 3.7 MMOL/L (3.5-5.1); SODIUM LEVEL 137 MMOL/L (136-145)
[2022-06-04] MEDS: INSULIN LISPRO (NovoLOG) PER UNIT SC SCH (17:31)
[2022-06-04] MEDS: LEVEMIR (INSULIN DETEMIR) 1 UNITS/0.01ML SC SCH (17:31)
[2022-06-04 19:45] VITALS: BP 110/59
[2022-06-04] MEDS: rOPINIRole 1MG TAB PO SCH (20:15)
[2022-06-04] MEDS: SERTRALINE HCL 50 MG TAB PO SCH (20:15)
[2022-06-05] VITALS (8 sets, daily range): BP systolic 96–168; BP diastolic 55–84
[2022-06-05] MEDS: MORPHINE 4 MG/ML 1ML VIAL IV PRN ×6 (00:01→22:57)
[2022-06-05 06:08] LABS: HEMATOCRIT 43.6 % (42.0-52.0); HEMOGLOBIN 15.1 g/dl (13.5-17.5); MEAN CORPUSCULAR HEMOGLOBIN 31.9 pg (27.0-33.0); MEAN CORPUSCULAR HGB CONC 34.6 g/dl (32.0-36.5); PLATELET COUNT, AUTOMATED 145 10^3/uL (150-450); RED BLOOD COUNT 4.74 10^6/uL (4.30-6.10); WHITE BLOOD COUNT 7.7 10^3/uL (4.0-10.0)
[2022-06-05] MEDS: NS 1,000 ML IV SCH ×2 (06:24→19:32)
[2022-06-05 06:30] LABS: BLOOD UREA NITROGEN 24 MG/DL (9-23); CALCIUM LEVEL 9.6 MG/DL (8.3-10.6); CARBON DIOXIDE LEVEL 27 MMOL/L (20-31); CHLORIDE LEVEL 106 MMOL/L (98-107); CREATININE FOR GFR 0.96 MG/DL (0.70-1.30); GLOMERULAR FILTRATION RATE > 60.0 (>49); GLUCOSE, FASTING 107 MG/DL (74-106); MAGNESIUM LEVEL 1.8 MG/DL (1.8-2.4); POTASSIUM SERUM 3.8 MMOL/L (3.5-5.1); SODIUM LEVEL 139 MMOL/L (136-145)
[2022-06-05] MEDS ORDERED: ceFAZolin SOD 2 GM in IV 1 EA IV ONE (07:15)
[2022-06-05] MEDS: INSULIN LISPRO (NovoLOG) PER UNIT SC SCH ×4 (07:30→20:47)
[2022-06-05] MEDS ORDERED: CLOPIDOGREL 75 MG TAB PO SCH (09:00)
[2022-06-05] MEDS: LEVEMIR (INSULIN DETEMIR) 1 UNITS/0.01ML SC SCH ×2 (09:00→13:11)
[2022-06-05] MEDS: CLOPIDOGREL 75 MG TAB PO SCH (10:52)
[2022-06-05] MEDS: PANTOPRAZOLE 40MG TAB (PROTONIX) PO SCH (11:54)
[2022-06-05] MEDS: ASPIRIN 81MG ENTERIC TABLET PO SCH (11:54)
[2022-06-05] MEDS: ROSUVASTATIN 10 MG TAB (CRESTOR) PO SCH (11:54)
[2022-06-05] MEDS: CARVedilol 6.25 MG TAB PO SCH (12:43)
[2022-06-05 14:02] LABS: CK-MB VALUE MASS 2.5 NG/ML (<3.6)
[2022-06-05 14:04] LABS: MB/CK RELATIVE INDEX 3.84 (< OR =4)
[2022-06-05] MEDS: rOPINIRole 1MG TAB PO SCH (20:46)
[2022-06-05] MEDS: SERTRALINE HCL 50 MG TAB PO SCH (20:46)
[2022-06-05] MEDS: HEPARIN SOD (PORCINE) 5000UNITS/ML 1ML VIAL/SYRINGE SQ SCH (20:47)
[2022-06-06] MEDS: INSULIN LISPRO (NovoLOG) PER UNIT SC SCH ×4 (01:00→13:02)
[2022-06-06] MEDS ORDERED: MORPHINE 4 MG/ML 1ML VIAL As Ordered ONE (03:04)
[2022-06-06] MEDS: MORPHINE 4 MG/ML 1ML VIAL IV PRN ×2 (03:11→06:30)
[2022-06-06] MEDS: NS 1,000 ML IV SCH (03:12)
[2022-06-06 04:15] VITALS: BP 170/75
[2022-06-06 05:55] LABS: HEMATOCRIT 43.5 % (42.0-52.0); HEMOGLOBIN 14.8 g/dl (13.5-17.5); MEAN CORPUSCULAR HEMOGLOBIN 31.1 pg (27.0-33.0); MEAN CORPUSCULAR VOLUME 91.4 fl (80.0-96.0); PLATELET COUNT, AUTOMATED 120 10^3/uL (150-450); RED BLOOD COUNT 4.76 10^6/uL (4.30-6.10); WHITE BLOOD COUNT 11.5 10^3/uL (4.0-10.0)
[2022-06-06 06:00] VITALS: BP 160/62
[2022-06-06] MEDS: HEPARIN SOD (PORCINE) 5000UNITS/ML 1ML VIAL/SYRINGE SQ SCH (06:00)
[2022-06-06 06:21] LABS: BLOOD UREA NITROGEN 19 MG/DL (9-23); CALCIUM LEVEL 8.5 MG/DL (8.3-10.6); CARBON DIOXIDE LEVEL 24 MMOL/L (20-31); CHLORIDE LEVEL 109 MMOL/L (98-107); GLOMERULAR FILTRATION RATE > 60.0 (>49); GLUCOSE, FASTING 123 MG/DL (74-106); MAGNESIUM LEVEL 1.5 MG/DL (1.8-2.4); POTASSIUM SERUM 4.1 MMOL/L (3.5-5.1); SODIUM LEVEL 140 MMOL/L (136-145)
[2022-06-06 08:00] VITALS: BP 162/82
[2022-06-06] MEDS: CLOPIDOGREL 75 MG TAB PO SCH (08:06)
[2022-06-06] MEDS: ASPIRIN 81MG ENTERIC TABLET PO SCH (08:06)
[2022-06-06] MEDS: ROSUVASTATIN 10 MG TAB (CRESTOR) PO SCH (08:06)
[2022-06-06] MEDS: CARVedilol 6.25 MG TAB PO SCH (08:07)
[2022-06-06] MEDS: LEVEMIR (INSULIN DETEMIR) 1 UNITS/0.01ML SC SCH (08:08)
[2022-06-06] MEDS: MAG SULF 1GM/100ML (MAG RUN) 1 GM in IV 1 EA IV SCH ×2 (08:09→10:07)
[2022-06-06] MEDS: PANTOPRAZOLE 40MG TAB (PROTONIX) PO SCH (08:09)
[2022-06-06] MEDS ORDERED: LABETALOL 100MG/20ML VIAL IV STA (09:34)
[2022-06-06] MEDS ORDERED: LEVEMIR (INSULIN DETEMIR) 1 UNITS/0.01ML SC ONE (09:35)
[2022-06-06] MEDS ORDERED: LANTINJ4 SC (09:39)
[2022-06-06] MEDS ORDERED: HUMA100I5 SC (09:39)
[2022-06-06 09:56] VITALS: BP 150/88
[2022-06-06 10:14] VITALS: BP 148/74
[2022-06-06] MEDS ORDERED: ASPI81TAEC PO (11:17)
[2022-06-06] MEDS ORDERED: CLOP75TA2 PO (11:17)
[2022-06-06] MEDS ORDERED: CARV6.25 PO (11:17)
[2022-06-06] MEDS ORDERED: INSU1MIS20 SC (11:23)
[2022-06-06] MEDS ORDERED: GLUC1TES2 XX ×2 (11:23→12:01)
[2022-06-06] MEDS ORDERED: ALCOPAD25 TOP ×2 (11:23→12:01)
[2022-06-06] MEDS ORDERED: LANC30MI XX ×2 (11:23→12:01)
[2022-06-06] MEDS ORDERED: BLOOKIT21 XX ×2 (11:23→12:01)
[2022-06-06] MEDS ORDERED: PEN1MIS23 SC (11:23)
[2022-06-06 12:00] VITALS: BP 142/72
[2022-06-06] MEDS ORDERED: LOSARTAN 50MG TABLET PO SCH (21:00)
== END 2022-06-06 13:07 | disposition home or self-care (01) ==
LOC: M ED 09:23 → M ED INP 10:23 → ENRESERV 12:49 → M PCU 13:41
PROVIDERS: ADMIT Internal Medicine; ATTEND Internal Medicine
DX: I70.213 Atherosclerosis of native arteries of extremities with intermittent claudication, bilateral legs (principal); E11.51 Type 2 diabetes mellitus with diabetic peripheral angiopathy without gangrene; E87.3 Alkalosis; K86.1 Other chronic pancreatitis; I10 Essential (primary) hypertension; I25.10 Atherosclerotic heart disease of native coronary artery without angina pectoris; Z98.61 Coronary angioplasty status; E78.5 Hyperlipidemia, unspecified; Z79.82 Long term (current) use of aspirin; Z79.02 Long term (current) use of antithrombotics/antiplatelets; Z79.4 Long term (current) use of insulin; Z79.899 Other long term (current) drug therapy; Z88.8 Allergy status to other drugs, medicaments and biological substances
CPT/HCPCS: 36415; 36600; 37224; 75630; 75774; 80048; 80076; 82010; 82550; 82553; 82803; 83036; 83735; 84484; 85027; 85610; 85730; 86850; 86900; 86901; 87631; 93005; 96361; 96365; 96375; 96376; 99152; 99153; 99284; C1725; C1760; C1761; C1769; C1874; C1887; C1894; G0378; J0690; J1815; J3475

== ENCOUNTER → 2022-06-04 | Outpatient (CLI) | payer MEDICARE, MEDICAID ==
[~2022-06-04] MED LIST changes: +CLOPIDOGREL 75 MG TAB As Ordered ONE; +DEXTROSE 50% 50ML VIAL As Ordered ONE; +DICL1GEL3 TOP; +HEPARIN 1,000UNITS/ML 10ML VIAL (FOR RADIOLOGY & DIALYSIS ONLY) As Ordered ONE; +HYDR-3490 PO; +INSULIN LISPRO (NovoLOG) PER UNIT As Ordered ONE; +INSULIN LISPRO (NovoLOG) PER UNIT SC STA; +ISOVUE-300 61% 100ML VIAL As Ordered ONE; +JARD1TAB3 PO; +LIDOCAINE 1% MDV 20ML VIAL As Ordered ONE; +LOSA100T45 PO; +MIDAZOLAM INJ 2MG/2ML VIAL As Ordered ONE; +MORPHINE 10 MG/ML 1ML VIAL As Ordered ONE; +NS 1,000 ML IV SCH; +PAPAVERINE HCL 60MG 2ML VIAL (30MG/ML) As Ordered ONE; +ROSU10TA6 PO; +SERT50TA29 PO; +TADA5TAB PO; +ceFAZolin 2 GM/D5W 50 ML IV BAG As Ordered ONE; +ceFAZolin SOD 2 GM in IV 1 EA IV ONE; +diphenhydrAMINE 50MG/ML VIAL As Ordered ONE; +fentaNYL 100 MCG/2 ML INJECTION As Ordered ONE
[2022-06-04 07:56] LABS: HEMATOCRIT 46.2 % (42.0-52.0); HEMOGLOBIN 16.2 g/dl (13.5-17.5); MEAN CORPUSCULAR HEMOGLOBIN 31.7 pg (27.0-33.0); MEAN CORPUSCULAR HGB CONC 35.1 g/dl (32.0-36.5); MEAN CORPUSCULAR VOLUME 90.4 fl (80.0-96.0); PLATELET COUNT, AUTOMATED 175 10^3/uL (150-450); RED BLOOD COUNT 5.11 10^6/uL (4.30-6.10); WHITE BLOOD COUNT 9.9 10^3/uL (4.0-10.0)
[2022-06-04 08:08] LABS: INR 0.91; PROTHROMBIN TIME 12.5 SECONDS (12.5-14.5)
[2022-06-04 08:09] LABS: PARTIAL THROMBOPLASTIN TIME 24.6 SECONDS (24.8-34.2)
[2022-06-04 08:27] LABS: CALCIUM LEVEL 10.1 MG/DL (8.3-10.6); CREATININE FOR GFR 1.35 MG/DL (0.70-1.30); MAGNESIUM LEVEL 2.2 MG/DL (1.8-2.4); POTASSIUM SERUM 4.1 MMOL/L (3.5-5.1)
[2022-06-04 09:15] VITALS: BP 111/59
== END ==
LOC: M IRPRO 07:06
PROVIDERS: ATTEND Surgery Vascular Surgery
DX: I70.213 Atherosclerosis of native arteries of extremities with intermittent claudication, bilateral legs (principal); E11.51 Type 2 diabetes mellitus with diabetic peripheral angiopathy without gangrene; E87.3 Alkalosis; K86.1 Other chronic pancreatitis
CPT/HCPCS: 80048; 83735; 85027; 85610; 85730; 86850; 86900; 86901; J0690; J1815

== ENCOUNTER → 2022-08-26 | Outpatient (CLI) | payer MEDICARE, MEDICAID ==
[~2022-08-26] MED LIST changes: +ALCOPAD25 TOP; +ASPI81TAEC PO; +BLOOKIT21 XX; +DICL1GEL3 TOP; +GLUC1TES2 XX; +HUMA100I5 SC; +HYDR-3490 PO; +INSU1MIS20 SC; +JARD1TAB3 PO; +LANC30MI XX; +LANTINJ4 SC; +LOSA100T46 PO; +PEN1MIS23 SC; -ROPI0.5T3 PO; +ROPI0.5T33 PO; +ROSU10TA6 PO; +SERT50TA29 PO; +TADA5TAB PO
== END ==
LOC: M RAD 13:33
PROVIDERS: ATTEND Surgery Vascular Surgery
DX: I70.203 Unspecified atherosclerosis of native arteries of extremities, bilateral legs (principal); Z95.820 Peripheral vascular angioplasty status with implants and grafts

== ENCOUNTER 2022-12-28 17:56 | Inpatient (IN) | payer MEDICARE, MEDICAID ==
[~2022-12-28] VITALS: Ht 177.8 cm; Wt 68.2 kg
[~2022-12-28 17:56] MED LIST changes: +CURRENT HEIGHT AND WEIGHT NEEDED ON PATIENT XX SCH; +DICL100G10 TOP; -DICL1GEL3 TOP; +GLIP5TAB17 PO; -GLIP5TAB8 PO; +MECL-209 PO; -MECL1TAB31 PO; +PEN-61 SC; -PEN1MIS23 SC
[2022-12-28 18:00] VITALS: BP 161/77; TEMP 96.8; O2SAT 99
[2022-12-28] MEDS ORDERED: ACETAMINOPHEN TAB 650MG DOSE (2X325MG) PO SCH (18:00)
[2022-12-28] MEDS ORDERED: MOM 30ML SUSPENSION UDC PO PRN (18:05)
[2022-12-28] MEDS ORDERED: ACETAMINOPHEN TAB 650MG DOSE (2X325MG) PO PRN (18:05)
[2022-12-28] MEDS ORDERED: HEPARIN SOD (PORCINE) 5000UNITS/ML 1ML VIAL/SYRINGE IV PRN (18:05)
[2022-12-28] MEDS ORDERED: GLUCOSE 4GM CHEW TABLET PO PRN (18:10)
[2022-12-28] MEDS ORDERED: DEXTROSE 50% 50ML SYRINGE IV PRN (18:10)
[2022-12-28] MEDS ORDERED: GLUCAGON INJ 1MG VIAL SC PRN (18:10)
[2022-12-28] MEDS: LR 1,000 ML IV SCH (18:55)
[2022-12-28] MEDS: ACETAMINOPHEN 500 MG TAB PO SCH ×2 (19:28→23:52)
[2022-12-28] MEDS: HYDROMORPHONE HCL 0.5 MG/ 0.5 ML SYRINGE IV PRN ×2 (19:49→23:53)
[2022-12-28 19:59] LABS: HEMATOCRIT 45.9 % (42.0-52.0); HEMOGLOBIN 15.2 g/dl (13.5-17.5); MEAN CORPUSCULAR HEMOGLOBIN 30.2 pg (27.0-33.0); MEAN CORPUSCULAR HGB CONC 33.1 g/dl (32.0-36.5); MEAN CORPUSCULAR VOLUME 91.3 fl (80.0-96.0); PLATELET COUNT, AUTOMATED 167 10^3/uL (150-450); RED BLOOD COUNT 5.03 10^6/uL (4.30-6.10); WHITE BLOOD COUNT 6.1 10^3/uL (4.0-10.0)
[2022-12-28 20:00] VITALS: BP 168/82; TEMP 97.9; O2SAT 95
[2022-12-28 20:08] LABS: INR 1.03; PARTIAL THROMBOPLASTIN TIME 28.5 SECONDS (24.8-34.2); PROTHROMBIN TIME 13.2 SECONDS (12.5-14.5)
[2022-12-28 20:37] LABS: ALBUMIN 3.5 G/DL (3.2-5.2); ALKALINE PHOSPHATASE 105 U/L (46-116); ALT/SGPT 21 U/L (7.0-40); AST/SGOT 17 U/L (<34); BILIRUBIN,TOTAL 0.5 MG/DL (0.3-1.2); BLOOD UREA NITROGEN 24 MG/DL (9-23); CALCIUM LEVEL 9.2 MG/DL (8.3-10.6); CARBON DIOXIDE LEVEL 25 MMOL/L (20-31); CHLORIDE LEVEL 111 MMOL/L (98-107); CREATININE FOR GFR 1.25 MG/DL (0.70-1.30); GLOMERULAR FILTRATION RATE > 60.0 (>49); GLUCOSE, FASTING 89 MG/DL (74-106); POTASSIUM SERUM 4.6 MMOL/L (3.5-5.1); SODIUM LEVEL 144 MMOL/L (136-145); TOTAL PROTEIN 6.9 G/DL (5.7-8.2)
[2022-12-28 20:43] LABS: PROCALCITONIN 0.07 ng/ml
[2022-12-28] MEDS ORDERED: CARV6.25 PO (20:58)
[2022-12-28] MEDS ORDERED: LANTINJ4 SC (20:58)
[2022-12-28] MEDS ORDERED: ZOLO100T PO (20:58)
[2022-12-28] MEDS ORDERED: ASPI81TA26 PO (20:58)
[2022-12-28] MEDS: DOCUSATE SODIUM 100MG CAPSULE PO SCH (21:00)
[2022-12-28] MEDS: rOPINIRole 1MG TAB PO SCH (21:00)
[2022-12-28] MEDS ORDERED: HOME MED LIST COMPLETE! XX SCH (21:00)
[2022-12-28] MEDS: LEVEMIR (INSULIN DETEMIR) 1 UNITS/0.01ML SC SCH (21:00)
[2022-12-28] MEDS: INSULIN LISPRO (NovoLOG) PER UNIT SC SCH (21:00)
[2022-12-28] MEDS ORDERED: HEPARIN DRIP 25,000 UNITS in IV 1 EA IV SCH (21:00)
[2022-12-28] MEDS ORDERED: PERCOCET 5MG/325MG TAB PO PRN (22:00)
[2022-12-28] MEDS: SERTRALINE 100 MG TAB PO SCH (22:23)
[2022-12-28] MEDS: CARVedilol 6.25 MG TAB PO SCH (22:24)
[2022-12-29] VITALS: BP 108/55; TEMP 97.6; O2SAT 100
[2022-12-29 03:29] LABS: HEMATOCRIT 42.5 % (42.0-52.0); HEMOGLOBIN 14.2 g/dl (13.5-17.5); MEAN CORPUSCULAR HEMOGLOBIN 30.4 pg (27.0-33.0); MEAN CORPUSCULAR HGB CONC 33.4 g/dl (32.0-36.5); PLATELET COUNT, AUTOMATED 149 10^3/uL (150-450); RED BLOOD COUNT 4.67 10^6/uL (4.30-6.10); WHITE BLOOD COUNT 6.4 10^3/uL (4.0-10.0)
[2022-12-29 03:37] VITALS: BP 111/63; TEMP 97.5; O2SAT 97
[2022-12-29 05:06] LABS: CALCIUM LEVEL 8.8 MG/DL (8.3-10.6); CREATININE FOR GFR 1.29 MG/DL (0.70-1.30); GLOMERULAR FILTRATION RATE 59.9 (>49); POTASSIUM SERUM 4.4 MMOL/L (3.5-5.1)
[2022-12-29] MEDS: LR 1,000 ML IV SCH (05:25)
[2022-12-29 06:13] LABS: MAGNESIUM LEVEL 2.1 MG/DL (1.8-2.4)
[2022-12-29] MEDS: HYDROMORPHONE HCL 0.5 MG/ 0.5 ML SYRINGE IV PRN ×3 (06:19→20:13)
[2022-12-29] MEDS: ACETAMINOPHEN 500 MG TAB PO SCH ×3 (06:19→18:26)
[2022-12-29 07:23] VITALS: BP 145/68; TEMP 97.3; O2SAT 98
[2022-12-29] MEDS: INSULIN LISPRO (NovoLOG) PER UNIT SC SCH ×4 (07:30→21:30)
[2022-12-29] MEDS: DOCUSATE SODIUM 100MG CAPSULE PO SCH (07:57)
[2022-12-29] MEDS: ASPIRIN 81MG ENTERIC TABLET PO SCH (09:34)
[2022-12-29] MEDS: CARVedilol 6.25 MG TAB PO SCH ×2 (09:35→21:32)
[2022-12-29] MEDS: PANTOPRAZOLE 40MG TAB (PROTONIX) PO SCH (09:35)
[2022-12-29] MEDS: HEPARIN DRIP 25,000 UNITS in IV 1 EA IV SCH ×2 (09:49→18:27)
[2022-12-29 12:25] VITALS: BP 140/64; TEMP 97.2; O2SAT 98
[2022-12-29 17:24] LABS: INR 1.18; PROTHROMBIN TIME 14.6 SECONDS (12.5-14.5)
[2022-12-29 17:26] LABS: PARTIAL THROMBOPLASTIN TIME 86.2 SECONDS (24.8-34.2)
[2022-12-29 20:00] VITALS: BP 126/57; TEMP 97.6; O2SAT 96
[2022-12-29] MEDS: rOPINIRole 1MG TAB PO SCH (20:11)
[2022-12-29] MEDS: SERTRALINE 100 MG TAB PO SCH (20:11)
[2022-12-29] MEDS: ROSUVASTATIN 10 MG TAB (CRESTOR) PO SCH (20:11)
[2022-12-29] MEDS: LEVEMIR (INSULIN DETEMIR) 1 UNITS/0.01ML SC SCH (20:18)
[2022-12-29 21:39] LABS: INR 1.09; PROTHROMBIN TIME 13.8 SECONDS (12.5-14.5)
[2022-12-29 21:41] LABS: PARTIAL THROMBOPLASTIN TIME 78.5 SECONDS (24.8-34.2)
[2022-12-29 23:44] VITALS: BP 126/63; TEMP 99.3; O2SAT 97
[2022-12-30] VITALS (11 sets, daily range): BP systolic 118–164; BP diastolic 56–73; TEMP 97.1–98.7; O2SAT 94–98
[2022-12-30] MEDS: ACETAMINOPHEN 500 MG TAB PO SCH ×4 (00:44→17:52)
[2022-12-30 01:17] LABS: INR 1.11; PROTHROMBIN TIME 13.9 SECONDS (12.5-14.5)
[2022-12-30 01:19] LABS: PARTIAL THROMBOPLASTIN TIME 78.8 SECONDS (24.8-34.2)
[2022-12-30 07:14] LABS: HEMATOCRIT 43.7 % (42.0-52.0); HEMOGLOBIN 14.5 g/dl (13.5-17.5); MEAN CORPUSCULAR HGB CONC 33.2 g/dl (32.0-36.5); MEAN CORPUSCULAR VOLUME 90.3 fl (80.0-96.0); PLATELET COUNT, AUTOMATED 163 10^3/uL (150-450); RED BLOOD COUNT 4.84 10^6/uL (4.30-6.10)
[2022-12-30 07:30] LABS: INR 1.07; PROTHROMBIN TIME 13.6 SECONDS (12.5-14.5)
[2022-12-30] MEDS: INSULIN LISPRO (NovoLOG) PER UNIT SC SCH ×4 (07:30→21:00)
[2022-12-30 07:32] LABS: PARTIAL THROMBOPLASTIN TIME 92.5 SECONDS (24.8-34.2)
[2022-12-30] MEDS: HYDROMORPHONE HCL 0.5 MG/ 0.5 ML SYRINGE IV PRN ×3 (07:48→16:40)
[2022-12-30] MEDS ORDERED: fentaNYL 100 MCG/2 ML INJECTION As Ordered ONE ×2 (08:02→10:08)
[2022-12-30] MEDS ORDERED: LIDOCAINE 1% MDV 20ML VIAL As Ordered ONE (08:03)
[2022-12-30] MEDS ORDERED: MIDAZOLAM INJ 2MG/2ML VIAL As Ordered ONE (08:03)
[2022-12-30] MEDS ORDERED: HEPARIN 1,000UNITS/ML 10ML VIAL (FOR RADIOLOGY & DIALYSIS ONLY) As Ordered ONE (08:03)
[2022-12-30] MEDS ORDERED: ISOVUE-300 61% 100ML VIAL As Ordered ONE (08:04)
[2022-12-30 08:16] LABS: BLOOD UREA NITROGEN 22 MG/DL (9-23); CARBON DIOXIDE LEVEL 25 MMOL/L (20-31); CHLORIDE LEVEL 110 MMOL/L (98-107); CREATININE FOR GFR 1.11 MG/DL (0.70-1.30); GLOMERULAR FILTRATION RATE > 60.0 (>49); GLUCOSE, FASTING 109 MG/DL (74-106); POTASSIUM SERUM 4.3 MMOL/L (3.5-5.1); SODIUM LEVEL 143 MMOL/L (136-145)
[2022-12-30] MEDS ORDERED: ALTEPLASE 2MG/2ML VIAL As Ordered ONE ×2 (09:13→10:10)
[2022-12-30] MEDS ORDERED: ceFAZolin 2 GM/D5W 50 ML IV BAG As Ordered ONE (09:21)
[2022-12-30] MEDS ORDERED: ceFAZolin SOD 2 GM in IV 1 EA IV ONE (09:25)
[2022-12-30] MEDS ORDERED: CLOPIDOGREL 75 MG TAB As Ordered ONE (10:51)
[2022-12-30] MEDS: PANTOPRAZOLE 40MG TAB (PROTONIX) PO SCH (12:48)
[2022-12-30] MEDS: ASPIRIN 81MG ENTERIC TABLET PO SCH (12:48)
[2022-12-30] MEDS: CARVedilol 6.25 MG TAB PO SCH ×2 (12:48→20:36)
[2022-12-30] MEDS ORDERED: oxyCODONE 5MG TAB PO PRN (17:35)
[2022-12-30] MEDS: SERTRALINE 100 MG TAB PO SCH (20:35)
[2022-12-30] MEDS: ROSUVASTATIN 10 MG TAB (CRESTOR) PO SCH (20:35)
[2022-12-30] MEDS: rOPINIRole 1MG TAB PO SCH (20:35)
[2022-12-30] MEDS ORDERED: LEVEMIR (INSULIN DETEMIR) 1 UNITS/0.01ML SC SCH (21:00)
[2022-12-30] MEDS: oxyCODONE 5MG TAB PO PRN (21:30)
[2022-12-31] MEDS: ACETAMINOPHEN 500 MG TAB PO SCH ×2 (00:44→06:03)
[2022-12-31 03:42] VITALS: BP 135/62; TEMP 97.9; O2SAT 94
[2022-12-31 05:48] LABS: HEMATOCRIT 41.6 % (42.0-52.0); HEMOGLOBIN 13.8 g/dl (13.5-17.5); MEAN CORPUSCULAR HEMOGLOBIN 30.1 pg (27.0-33.0); MEAN CORPUSCULAR HGB CONC 33.2 g/dl (32.0-36.5); MEAN CORPUSCULAR VOLUME 90.6 fl (80.0-96.0); PLATELET COUNT, AUTOMATED 146 10^3/uL (150-450); RED BLOOD COUNT 4.59 10^6/uL (4.30-6.10); WHITE BLOOD COUNT 8.4 10^3/uL (4.0-10.0)
[2022-12-31] MEDS: oxyCODONE 5MG TAB PO PRN (05:48)
[2022-12-31 06:14] LABS: BLOOD UREA NITROGEN 19 MG/DL (9-23); CALCIUM LEVEL 9.1 MG/DL (8.3-10.6); CARBON DIOXIDE LEVEL 23 MMOL/L (20-31); CHLORIDE LEVEL 109 MMOL/L (98-107); CREATININE FOR GFR 1.05 MG/DL (0.70-1.30); GLOMERULAR FILTRATION RATE > 60.0 (>49); GLUCOSE, FASTING 110 MG/DL (74-106); POTASSIUM SERUM 4.4 MMOL/L (3.5-5.1); SODIUM LEVEL 142 MMOL/L (136-145)
[2022-12-31] MEDS: INSULIN LISPRO (NovoLOG) PER UNIT SC SCH (07:30)
[2022-12-31 07:47] VITALS: BP 138/67; TEMP 97.4; O2SAT 97
[2022-12-31] MEDS ORDERED: PILL CUTTER 1 EACH XX PRN (07:55)
[2022-12-31] MEDS ORDERED: RIVAROXABAN 10MG TAB (XARELTO) PO SCH (08:00)
[2022-12-31 08:36] VITALS: BP 138/67
[2022-12-31] MEDS: ASPIRIN 81MG ENTERIC TABLET PO SCH (08:36)
[2022-12-31] MEDS: CARVedilol 6.25 MG TAB PO SCH (08:36)
[2022-12-31] MEDS: PANTOPRAZOLE 40MG TAB (PROTONIX) PO SCH (08:36)
[2022-12-31] MEDS ORDERED: CLOPIDOGREL 75 MG TAB PO SCH (09:00)
[2022-12-31] MEDS ORDERED: ROSU40TA4 PO ×2 (11:50→13:23)
[2022-12-31] MEDS ORDERED: XARE10TA PO (11:52)
== END 2022-12-31 13:50 | disposition home or self-care (01) | DRG 271 ==
LOC: M PCU 18:31
PROVIDERS: ADMIT Student in an Organized Health Care Education/Training Program; ATTEND Student in an Organized Health Care Education/Training Program
PROC: 047M3DZ Dilation of Right Popliteal Artery with Intraluminal Device, Percutaneous Approach (ICD-10-PCS; 2022-12-30)
PROC: X27H385 Dilation of Right Femoral Artery with Sustained Release Drug-eluting Intraluminal Device, Percutaneous Approach, New Technology Group 5 (ICD-10-PCS; 2022-12-30)
PROC: 047H3ZZ Dilation of Right External Iliac Artery, Percutaneous Approach (ICD-10-PCS; 2022-12-30)
PROC: 3E05317 Introduction of Other Thrombolytic into Peripheral Artery, Percutaneous Approach (ICD-10-PCS; 2022-12-30)
PROC: 04CK3ZZ Extirpation of Matter from Right Femoral Artery, Percutaneous Approach (ICD-10-PCS; principal; 2022-12-30 08:00)
DX: T82.868A Thrombosis due to vascular prosthetic devices, implants and grafts, initial encounter (principal); N17.9 Acute kidney failure, unspecified; E11.51 Type 2 diabetes mellitus with diabetic peripheral angiopathy without gangrene; I10 Essential (primary) hypertension; I25.10 Atherosclerotic heart disease of native coronary artery without angina pectoris; I70.211 Atherosclerosis of native arteries of extremities with intermittent claudication, right leg; E11.42 Type 2 diabetes mellitus with diabetic polyneuropathy; G25.81 Restless legs syndrome; F41.9 Anxiety disorder, unspecified; E78.00 Pure hypercholesterolemia, unspecified; I71.40 Abdominal aortic aneurysm, without rupture, unspecified; K21.9 Gastro-esophageal reflux disease without esophagitis; F32.A Depression, unspecified; I25.2 Old myocardial infarction; Z79.82 Long term (current) use of aspirin; Z79.4 Long term (current) use of insulin; Z79.899 Other long term (current) drug therapy; Z88.8 Allergy status to other drugs, medicaments and biological substances; Z95.828 Presence of other vascular implants and grafts; Z87.891 Personal history of nicotine dependence; Z95.5 Presence of coronary angioplasty implant and graft

== ENCOUNTER → 2023-01-24 | Outpatient (CLI) | payer MEDICARE, OTHER ==
[~2023-01-24] MED LIST changes: +ASPI81TA26 PO; -CURRENT HEIGHT AND WEIGHT NEEDED ON PATIENT XX SCH; +ROSU40TA4 PO; +XARE10TA PO; +ZOLO100T PO
== END ==
LOC: M RAD 10:42
PROVIDERS: ATTEND Surgery Vascular Surgery
DX: I73.9 Peripheral vascular disease, unspecified (principal); Z48.812 Encounter for surgical aftercare following surgery on the circulatory system